=== PATIENT | female | born 1995 | race Caucasian/White ===

== ENCOUNTER → 2019-10-01 | Outpatient (CLI) | payer BC ==
--- NOTE | 2019-10-02 14:10 | KCIC ---
Left breast ultrasound: Reason for examination: Left breast pain. Evaluate for fibrocystic changes. Left whole breast ultrasound including evaluation of all 4 quadrants and the retroareolar and axillary regions of the left breast was performed. There appears to be dense breast tissue with some mild ductal ectasia. No discrete cystic or solid nodules are seen. No abnormal appearing lymph nodes are seen in the axilla. IMPRESSION: Dense breast with some ductal ectasia but no focal abnormality seen. Recommend clinical follow-up. BI-RADS Category 2: Benign. "Our facility is accredited by the [employer] Mammography Program." This patient's information has been entered into a reminder system for the patient to be notified with the results of her examination and a target date for the next mammogram. Electronically signed by: Penny Gracia MD (10/02/2019 2:07 PM) [id number]
== END | disposition home or self-care (01) ==
LOC: KCIC US 12:59
PROVIDERS: ATTEND Obstetrics & Gynecology
DX: N60.42 Mammary duct ectasia of left breast (principal); N60.12 Diffuse cystic mastopathy of left breast
CPT/HCPCS: 76641